=== PATIENT | male | born 1960 | race Caucasian/White ===

== ENCOUNTER 2017-06-07 12:37 | Inpatient (IN) | payer OTHER ==
[2017-06-07 14:30] VITALS: BMI 23.0
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
[2017-06-07] MEDS ORDERED: P-EPHED 60MG/TRIPROLIDI 2.5MG TABLET PO PRN (15:06)
[2017-06-07] MEDS ORDERED: MAG HYDROX/AL HYDROX/SIMETH 30 ML UNIT-DOSE CUP PO PRN (15:06)
[2017-06-07] MEDS ORDERED: guaiFENesin/D-METHORPHAN HB 10 ML UNIT-DOSE CUPS PO PRN (15:06)
[2017-06-07] MEDS ORDERED: MENTHOL/PHENOL 1 EACH UD MM PRN (15:06)
[2017-06-07] MEDS ORDERED: LOPERAMIDE HCL 2 MG CAPSULE PO PRN (15:06)
[2017-06-07] MEDS ORDERED: NICOTINE POLACRILEX 2 MG GUM BC PRN (15:06)
[2017-06-07] MEDS ORDERED: MAGNESIUM CITRATE 300 ML BOTTLE PO PRN (15:06)
[2017-06-07] MEDS ORDERED: MAGNESIUM HYDROX 2400MG/30ML ORAL SUSPENSION 30 ML CUP PO PRN (15:06)
[2017-06-07] MEDS ORDERED: METHADONE HCL 10 MG TABLET (FOR DETOX USE ONLY) PO ONE ×2 (16:45→23:00)
[2017-06-07] MEDS: BACITRACIN 0.9 GM PACKET TP SCH (17:30)
[2017-06-07] MEDS: NICOTINE 14 MG/24 HOURS TOPICAL PATCH TD SCH (17:30)
[2017-06-07] MEDS: diazePAM 5 MG TABLET PO PRN ×2 (17:31→22:16)
[2017-06-07] MEDS ORDERED: INSULIN (NOVOLOG) ASPART 100 UNITS/ML 10ML VIAL ONE ×2 (17:38→20:57)
[2017-06-07] MEDS: INSULIN SLIDING SCALE (NOVOLOG) 1 VIAL SQ SCH ×2 (17:40→22:20)
[2017-06-07] MEDS: ACETAMINOPHEN 325 MG TABLET (FP) PO PRN ×2 (17:41→22:17)
--- NOTE | 2017-06-07 19:11 | PN ---
S Progress Note Note: Patient with abnormal ekg : re afib. Patient reports hx of Afib on xarelto. Denies SOB, chest pain, edema, chest pain, vertigo or paresthesia. Vital Signs Temperature 98.4 F 06/07/17 18:39 Pulse Rate 61 06/07/17 18:39 Respiratory Rate 18 06/07/17 18:39 Blood Pressure 122/81 06/07/17 18:39 O2 Sat by Pulse Oximetry (%) Laboratory Last Values POC Glucometer 242 UNITS (80-120) 06/07/17 17:35 A/P: Patient AOX3, in no apparent distress. No adventitious breath sound Skin intact no edema Plan: Continue Xarelto Increase fluids Repeat EKG Continue to monitor
[2017-06-07] MEDS ORDERED: RIVAROXABAN 20 MG TABLET PO SCH (19:15)
[2017-06-07] MEDS: ROSUVASTATIN CA 10 MG TABLET (FP) PO SCH (22:15)
[2017-06-07] MEDS: CEPHALEXIN MONOHYDRATE 500 MG CAPSULE (UD) PO SCH (22:15)
[2017-06-07] MEDS: THIAMINE HCL 100 MG TABLET (FP) PO SCH (22:15)
[2017-06-07] MEDS: MELATONIN 5 MG TABLETS PO PRN (22:16)
[2017-06-07] MEDS: INSULIN DETEMIR 100 UNITS/ML MDV SQ SCH (22:19)
[2017-06-08] MEDS: diazePAM 5 MG TABLET PO PRN ×3 (05:46→22:59)
[2017-06-08] MEDS: INSULIN SLIDING SCALE (NOVOLOG) 1 VIAL SQ SCH ×4 (07:01→22:48)
--- NOTE | 2017-06-08 09:28 | EKG ---
Test Reason : Blood Pressure : / mmHG Vent. Rate : 090 BPM Atrial Rate : 141 BPM P-R Int : 000 ms QRS Dur : 086 ms QT Int : 366 ms P-R-T Axes : 000 074 068 degrees QTc Int : 447 ms ATRIAL FIBRILLATION ABNORMAL ECG WHEN COMPARED WITH ECG OF 07-JUN-2017 17:52, NO SIGNIFICANT CHANGE WAS FOUND Confirmed by JEN EVANS MD ([id number]) on 06/08/2017 9:28:14 AM Referred By: Confirmed By:JEN EVANS MD
--- NOTE | 2017-06-08 09:29 | EKG ---
Test Reason : Blood Pressure : / mmHG Vent. Rate : 109 BPM Atrial Rate : 136 BPM P-R Int : 000 ms QRS Dur : 082 ms QT Int : 304 ms P-R-T Axes : 000 074 059 degrees QTc Int : 409 ms ATRIAL FIBRILLATION WITH RAPID VENTRICULAR RESPONSE ABNORMAL ECG NO PREVIOUS ECGS AVAILABLE Confirmed by CRISTINA LAI, JEN ([id number]) on 06/08/2017 9:28:33 AM Referred By: Confirmed By:JEN EVANS MD
[2017-06-08] MEDS ORDERED: METHADONE HCL 10 MG TABLET (FOR DETOX USE ONLY) PO ONE (10:00)
[2017-06-08 10:01] LABS: CHLORIDE 106 mmol/L (98-107); POTASSIUM 3.9 mmol/L (3.5-5.1); SODIUM 140 mmol/L (136-145)
[2017-06-08 10:02] LABS: HEMATOCRIT 33.3 % (35.4-49); HEMOGLOBIN 11.2 GM/dL (11.7-16.9); MCH 32.1 pg (25.7-33.7); MCHC 33.7 g/dl (32.0-35.9); MEAN CELL VOLUME 95.5 fl (80-96); MEAN PLT VOLUME 9.3 fl (7.5-11.1); PLATELET COUNT 151 K/MM3 (134-434); RBC 3.49 M/mm3 (4.00-5.60); RDW 14.5 % (11.9-15.9); WHITE BLOOD COUNT 3.6 K/mm3 (4.0-10.0)
[2017-06-08 10:08] LABS: ALBUMIN 2.2 g/dl (3.4-5.0); ALK PHOS 85 U/L (45-117); ANION GAP 5 (8-16); BILIRUBIN,TOTAL 0.5 mg/dL (0.2-1.0); BLOOD UREA NITROGEN 20 mg/dL (7-18); CALCIUM 7.9 mg/dL (8.5-10.1); CO2 29 mmol/L (21-32); CREATININE 0.5 mg/dL (0.7-1.3); GLUCOSE,RANDOM 162 mg/dL (74-106); SGOT/AST 61 U/L (15-37); SGPT/ALT 53 U/L (12-78); TOT PROT 6.2 g/dl (6.4-8.2)
[2017-06-08] MEDS: BACITRACIN 0.9 GM PACKET TP SCH (10:45)
[2017-06-08] MEDS: ASPIRIN 81 MG CHEWABLE TABLETS PO SCH (10:45)
[2017-06-08] MEDS: CEPHALEXIN MONOHYDRATE 500 MG CAPSULE (UD) PO SCH ×2 (10:45→22:52)
[2017-06-08] MEDS: PRENATAL VITAMINS W/ FOLIC ACID TABLET (FP) PO SCH (10:45)
[2017-06-08] MEDS: NICOTINE 14 MG/24 HOURS TOPICAL PATCH TD SCH (10:47)
--- NOTE | 2017-06-08 13:20 | PN ---
BHS COWS - Scale Resting Pulse: 0= IN 80 or Below Sweatin= Chills/Flushing Restless Observation: 3= Extraneous Movement Pupil Size: 2= Moderately Dilated Bone or Joint Aches: 4=Acute Joint/Muscle Pain Runny Nose/ Eye Tearin= Nasal Congestion GI Upset > 30mins: 0= None Tremor Observation of Outstretched Hands: 1= Tremor Mammoth, Not Seen Yawning Observation: 1= 1-2x During Session Anxiety or Irritability: 2=Irritable/Anxious Goose Flesh Skin: 0=Smooth Skin COWS Score: 15 BHS Progress Note (SOAP) Subjective: ANXIETY,IRRITABILITY,RESTLESSNESS,LEFT FOOT PAIN/SWELLING/REDNESS...XRAY DONE TODAY. RESULT PENDING. Objective: 06/08/17 13:19 Vital Signs Temperature 98.6 F 06/08/17 11:15 Pulse Rate 76 06/08/17 11:15 Respiratory Rate 18 06/08/17 11:15 Blood Pressure 136/60 06/08/17 11:15 O2 Sat by Pulse Oximetry (%) Laboratory Last Values WBC 3.6 K/mm3 (4.0-10.0) L 06/08/17 08:00 RBC 3.49 M/mm3 (4.00-5.60) L 06/08/17 08:00 Hgb 11.2 GM/dL (11.7-16.9) L D 06/08/17 08:00 Hct 33.3 % (35.4-49) L D 06/08/17 08:00 MCV 95.5 fl (80-96) 06/08/17 08:00 MCH 32.1 pg (25.7-33.7) 06/08/17 08:00 MCHC 33.7 g/dl (32.0-35.9) 06/08/17 08:00 RDW 14.5 % (11.9-15.9) 06/08/17 08:00 Plt Count 151 K/MM3 (134-434) 06/08/17 08:00 MPV 9.3 fl (7.5-11.1) D 06/08/17 08:00 Sodium 140 mmol/L (136-145) 06/08/17 08:00 Potassium 3.9 mmol/L (3.5-5.1) 06/08/17 08:00 Chloride 106 mmol/L (98-107) 06/08/17 08:00 Carbon Dioxide 29 mmol/L (21-32) 06/08/17 08:00 Anion Gap 5 (8-16) L 06/08/17 08:00 BUN 20 mg/dL (7-18) H D 06/08/17 08:00 Creatinine 0.5 mg/dL (0.7-1.3) L 06/08/17 08:00 Creat Clearance w eGFR > 60 (>60) 06/08/17 08:00 POC Glucometer 223 UNITS (80-120) 06/07/17 20:37 Random Glucose 162 mg/dL (74-106) H D 06/08/17 08:00 Calcium 7.9 mg/dL (8.5-10.1) L 06/08/17 08:00 Total Bilirubin 0.5 mg/dL (0.2-1.0) D 06/08/17 08:00 AST 61 U/L (15-37) H D 06/08/17 08:00 ALT 53 U/L (12-78) D 06/08/17 08:00 Alkaline Phosphatase 85 U/L (45-117) D 06/08/17 08:00 Total Protein 6.2 g/dl (6.4-8.2) L 06/08/17 08:00 Albumin 2.2 g/dl (3.4-5.0) L 06/08/17 08:00 RPR Titer Nonreactive (NONREACTIVE) 06/08/17 08:00 Assessment: 06/08/17 13:20 WITHDRAWAL SX Plan: CONTINUE DETOX
[2017-06-08] MEDS ORDERED: BACLOFEN 10 MG TABLET (FP) PO SCH (14:00)
[2017-06-08] MEDS: CYCLOBENZAPRINE HCL 10 MG TABLET (FP) PO SCH ×2 (14:02→22:52)
--- NOTE | 2017-06-08 16:37 | CONSULT ---
[facility] Psychiatric Consult - Data Date of interview: 06/08/17 Admission source: [facility] Identifying data: Readmission to [facility] Care for this 56 y/o [place] male seeking detox treatment on for heroin and cocaine dependence.Patient is single without dependents,domiciled,unemployed and supported on SSI benefits. Substance Abuse History: Confirmed by patient in this report.Details in current [facility] report : Smoking history: Current every day smoker. Have you smoked in the past 12 months: Yes. Aproximately how many cigarettes per day: 10. Cigars Per Day: 0. Hx Chewing Tobacco Use: No. Initiated information on smoking cessation : Yes. 'Breaking Loose' booklet given: 06/07/17. - Substance & Tx. History. Hx Alcohol Use: No. Hx Substance Use: Yes. Substance Use Type: Cocaine, Heroin. Hx Substance Use Treatment: Yes (2012) Medical History: Hypertension,atrial fibrillation,diabetes mellitus,dyslipidemia ,positive PPD and a distant history of orthosurgery for fracture of right patella (1982). Psychiatric History: Patient endorses a history of multiple psychiatric hospitalizations ([facility], [place]) since his first contact with a psychiatrist in 1992.Initially diagnosed with MDD.Later revised to Bipolar Disorder.Mr Gabriel reports that he used to be on abilify 20 mg/day.Last taken " more than 3 months ago." Known to Tomás.Currently assigned to [facility] mental health clinic in [facility] ( questionable adherence).Denies history of suicide attempts. Physical/Sexual Abuse/Trauma History: Patient denies. Additional Comment: THC-Marijuana, AMP-Amphetamines, MET-Methamphetamine, PCP- Phencyclidine, MDMA-Ecstasy, BAR-Barbiturates, BZO-Benzodiazepines, TCA- Tricyclic Antidepressant, OXY-Oxycodone.Noted. Mental Status Exam - Mental Status Exam Alert and Oriented to: Time, Place, Person Cognitive Function: Good Patient Appearance: Well Groomed Mood: Nervous, Withdrawn Affect: Mood Congruent Patient Behavior: Fatigued, Appropriate, Cooperative Speech Pattern: Clear Voice Loudness: Normal Thought Process: Intact, Goal Oriented Thought Disorder: Not Present Hallucinations: Denies Suicidal Ideation: Denies Homicidal Ideation: Denies Insight/Judgement: Poor Sleep: Poorly, Difficulty falling asleep Appetite: Good Muscle strength/Tone: Normal Gait/Station: Other (unsteady gait due to orthopedic issues ; has a cane at home ) Psychiatric Findings - Problem List ([place] 1, 2,3) (1) Cocaine dependence, uncomplicated Current Visit: Yes Status: Acute (2) Opioid dependence with withdrawal Current Visit: Yes Status: Acute (3) Cannabis abuse Current Visit: Yes Status: Acute (4) MDMA abuse Current Visit: Yes Status: Acute (5) PCP abuse Current Visit: Yes Status: Acute (6) Substance induced mood disorder Current Visit: Yes Status: Acute (7) Bipolar disorder Current Visit: Yes Status: Acute Comment: As per self-report.Non-adherent to medications. (8) Insomnia Current Visit: Yes Status: Acute - Initial Treatment Plan Initial Treatment Plan: Psychoeducation.Sleep hygiene discussed.Detoxification in progress.Ambien 5 mg po hs prn + abilify 5 mg po daily.Side effects/benefits of both drugs are discussed with the patient.Mr Rios is made aware of potential for sleep-walking.Consent (verbal) given.Observation.
[2017-06-08] MEDS ORDERED: INSULIN (NOVOLOG) ASPART 100 UNITS/ML 10ML VIAL ONE (17:57)
[2017-06-08] MEDS: RIVAROXABAN 20 MG TABLET PO SCH (18:31)
[2017-06-08] MEDS: ACETAMINOPHEN 325 MG TABLET (FP) PO PRN (20:30)
[2017-06-08] MEDS: ROSUVASTATIN CA 10 MG TABLET (FP) PO SCH (22:52)
[2017-06-08] MEDS: THIAMINE HCL 100 MG TABLET (FP) PO SCH (22:52)
[2017-06-08] MEDS: INSULIN DETEMIR 100 UNITS/ML MDV SQ SCH (22:58)
[2017-06-09] MEDS: diazePAM 5 MG TABLET PO PRN ×4 (05:38→22:40)
[2017-06-09] MEDS: CYCLOBENZAPRINE HCL 10 MG TABLET (FP) PO SCH ×3 (05:38→22:31)
[2017-06-09] MEDS ORDERED: INSULIN (NOVOLOG) ASPART 100 UNITS/ML 10ML VIAL ONE ×2 (07:42→17:18)
[2017-06-09] MEDS: INSULIN SLIDING SCALE (NOVOLOG) 1 VIAL SQ SCH ×3 (07:50→16:32)
[2017-06-09] MEDS ORDERED: METHADONE HCL 5 MG TABLET (FOR DETOX USE ONLY) PO ONE (10:00)
[2017-06-09] MEDS: PRENATAL VITAMINS W/ FOLIC ACID TABLET (FP) PO SCH (10:33)
[2017-06-09] MEDS: CEPHALEXIN MONOHYDRATE 500 MG CAPSULE (UD) PO SCH ×2 (10:33→22:31)
[2017-06-09] MEDS: ARIPiprazole 5 MG TABLET (FP) PO SCH (10:33)
[2017-06-09] MEDS: BACITRACIN 0.9 GM PACKET TP SCH (10:33)
[2017-06-09] MEDS: ASPIRIN 81 MG CHEWABLE TABLETS PO SCH (10:33)
[2017-06-09] MEDS: NICOTINE 14 MG/24 HOURS TOPICAL PATCH TD SCH (10:34)
--- NOTE | 2017-06-09 11:33 | PN ---
BHS COWS - Scale Resting Pulse: 1= [place] 81-100 Sweatin= Chills/Flushing Restless Observation: 3= Extraneous Movement Pupil Size: 2= Moderately Dilated Bone or Joint Aches: 4=Acute Joint/Muscle Pain Runny Nose/ Eye Tearin= Nasal Congestion GI Upset > 30mins: 0= None Tremor Observation of Outstretched Hands: 2= Slight Tremor Visible Yawning Observation: 1= 1-2x During Session Anxiety or Irritability: 2=Irritable/Anxious Goose Flesh Skin: 0=Smooth Skin COWS Score: 17 BHS Progress Note (SOAP) Subjective: ANXIETY,IRRITABILITY,MUSCLE ACHES,LEFT FOOT PAIN DUE TO CELLULITIS AND ABSCESS DUE TO IVDU. REFUSED FINGER STICK ACHS. Objective: 06/09/17 11:32 Vital Signs Temperature 98.4 F 06/09/17 09:13 Pulse Rate 85 06/09/17 09:13 Respiratory Rate 18 06/09/17 09:13 Blood Pressure 123/75 06/09/17 09:13 O2 Sat by Pulse Oximetry (%) Laboratory Last Values WBC 3.6 K/mm3 (4.0-10.0) L 06/08/17 08:00 RBC 3.49 M/mm3 (4.00-5.60) L 06/08/17 08:00 Hgb 11.2 GM/dL (11.7-16.9) L D 06/08/17 08:00 Hct 33.3 % (35.4-49) L D 06/08/17 08:00 MCV 95.5 fl (80-96) 06/08/17 08:00 MCH 32.1 pg (25.7-33.7) 06/08/17 08:00 MCHC 33.7 g/dl (32.0-35.9) 06/08/17 08:00 RDW 14.5 % (11.9-15.9) 06/08/17 08:00 Plt Count 151 K/MM3 (134-434) 06/08/17 08:00 MPV 9.3 fl (7.5-11.1) D 06/08/17 08:00 Sodium 140 mmol/L (136-145) 06/08/17 08:00 Potassium 3.9 mmol/L (3.5-5.1) 06/08/17 08:00 Chloride 106 mmol/L (98-107) 06/08/17 08:00 Carbon Dioxide 29 mmol/L (21-32) 06/08/17 08:00 Anion Gap 5 (8-16) L 06/08/17 08:00 BUN 20 mg/dL (7-18) H D 06/08/17 08:00 Creatinine 0.5 mg/dL (0.7-1.3) L 06/08/17 08:00 Creat Clearance w eGFR > 60 (>60) 06/08/17 08:00 POC Glucometer 187 UNITS (80-120) 06/09/17 05:37 Random Glucose 162 mg/dL (74-106) H D 06/08/17 08:00 Calcium 7.9 mg/dL (8.5-10.1) L 06/08/17 08:00 Total Bilirubin 0.5 mg/dL (0.2-1.0) D 06/08/17 08:00 AST 61 U/L (15-37) H D 06/08/17 08:00 ALT 53 U/L (12-78) D 06/08/17 08:00 Alkaline Phosphatase 85 U/L (45-117) D 06/08/17 08:00 Total Protein 6.2 g/dl (6.4-8.2) L 06/08/17 08:00 Albumin 2.2 g/dl (3.4-5.0) L 06/08/17 08:00 RPR Titer Nonreactive (NONREACTIVE) 06/08/17 08:00 CXR /HX PPD+: NO ACUTE PATHOLOGY Assessment: 06/09/17 11:33 WITHDRAWAL SX Plan: CONTINUE DETOX CHANGE BGM TO BIDAC
[2017-06-09] MEDS: RIVAROXABAN 20 MG TABLET PO SCH (17:32)
[2017-06-09] MEDS: ROSUVASTATIN CA 10 MG TABLET (FP) PO SCH (22:31)
[2017-06-09] MEDS: INSULIN DETEMIR 100 UNITS/ML MDV SQ SCH (22:31)
[2017-06-09] MEDS: THIAMINE HCL 100 MG TABLET (FP) PO SCH (22:31)
[2017-06-09] MEDS: MELATONIN 5 MG TABLETS PO PRN (22:32)
[2017-06-10] MEDS: CYCLOBENZAPRINE HCL 10 MG TABLET (FP) PO SCH ×3 (05:18→22:30)
[2017-06-10] MEDS: diazePAM 5 MG TABLET PO PRN ×2 (05:19→10:19)
[2017-06-10] MEDS: INSULIN SLIDING SCALE (NOVOLOG) 1 VIAL SQ SCH ×2 (07:24→17:25)
[2017-06-10] MEDS ORDERED: INSULIN (NOVOLOG) ASPART 100 UNITS/ML 10ML VIAL ONE ×2 (07:24→17:06)
[2017-06-10] MEDS ORDERED: METHADONE HCL 5 MG TABLET (FOR DETOX USE ONLY) PO ONE (10:00)
[2017-06-10] MEDS: BACITRACIN 0.9 GM PACKET TP SCH (10:17)
[2017-06-10] MEDS: CEPHALEXIN MONOHYDRATE 500 MG CAPSULE (UD) PO SCH ×2 (10:17→22:30)
[2017-06-10] MEDS: PRENATAL VITAMINS W/ FOLIC ACID TABLET (FP) PO SCH (10:17)
[2017-06-10] MEDS: ASPIRIN 81 MG CHEWABLE TABLETS PO SCH (10:17)
[2017-06-10] MEDS: NICOTINE 14 MG/24 HOURS TOPICAL PATCH TD SCH (10:18)
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
[2017-06-10] MEDS ORDERED: RANITIDINE HCL 150 MG TABLET (FP) PO ONE (11:50)
[2017-06-10] MEDS: ARIPiprazole 5 MG TABLET (FP) PO SCH (12:13)
[2017-06-10] MEDS: RIVAROXABAN 20 MG TABLET PO SCH (17:20)
[2017-06-10] MEDS: ROSUVASTATIN CA 10 MG TABLET (FP) PO SCH (22:30)
[2017-06-10] MEDS: RANITIDINE HCL 150 MG TABLET (FP) PO SCH (22:30)
[2017-06-10] MEDS: THIAMINE HCL 100 MG TABLET (FP) PO SCH (22:30)
[2017-06-10] MEDS: INSULIN DETEMIR 100 UNITS/ML MDV SQ SCH (22:32)
[2017-06-10] MEDS ORDERED: hydrOXYzine PAMOATE 50 MG CAPSULE (FP) PO PRN (22:39)
[2017-06-11] MEDS: CYCLOBENZAPRINE HCL 10 MG TABLET (FP) PO SCH ×3 (05:14→22:23)
[2017-06-11] MEDS: INSULIN SLIDING SCALE (NOVOLOG) 1 VIAL SQ SCH ×2 (07:15→17:11)
[2017-06-11] MEDS ORDERED: INSULIN (NOVOLOG) ASPART 100 UNITS/ML 10ML VIAL ONE ×2 (07:19→17:05)
[2017-06-11 10:00] LABS: URINE APPEARANCE CLEAR; URINE BILIRUBIN NEGATIVE (<2.0 mg/dL); URINE BLOOD NEGATIVE (NEGATIVE); URINE COLOR LTYELLOW; URINE GLUCOSE (UA) 3+ (NEGATIVE); URINE KETONE NEGATIVE (NEGATIVE); URINE LEUK ESTERASE NEGATIVE (NEGATIVE); URINE NITRITE NEGATIVE (NEGATIVE); URINE PROTEIN NEGATIVE (NEGATIVE)
[2017-06-11] MEDS ORDERED: METHADONE HCL 10 MG TABLET (FOR DETOX USE ONLY) PO ONE (10:00)
[2017-06-11] MEDS: PRENATAL VITAMINS W/ FOLIC ACID TABLET (FP) PO SCH (10:25)
[2017-06-11] MEDS: CEPHALEXIN MONOHYDRATE 500 MG CAPSULE (UD) PO SCH ×2 (10:25→22:23)
[2017-06-11] MEDS: ASPIRIN 81 MG CHEWABLE TABLETS PO SCH (10:25)
[2017-06-11] MEDS: RANITIDINE HCL 150 MG TABLET (FP) PO SCH ×2 (10:26→22:23)
[2017-06-11] MEDS: NICOTINE 14 MG/24 HOURS TOPICAL PATCH TD SCH (10:26)
[2017-06-11] MEDS: BACITRACIN 0.9 GM PACKET TP SCH (10:26)
[2017-06-11] MEDS: ARIPiprazole 5 MG TABLET (FP) PO SCH (10:53)
--- NOTE | 2017-06-11 15:46 | PN ---
BHS Progress Note (SOAP) Subjective: Anxious, Irritable, Interrupted Sleep. Objective: PATIENT A & O X 3, OBSERVED AMBULATING ON UNIT WITH ASSISTANCE OF A CANE. NO ACUTE DISTRESS. 06/11/17 15:44 Vital Signs Temperature 96.9 F L 06/11/17 13:58 Pulse Rate 96 H 06/11/17 13:58 Respiratory Rate 20 06/11/17 13:58 Blood Pressure 131/78 06/11/17 13:58 O2 Sat by Pulse Oximetry (%) Laboratory Tests 06/07/17 06/07/17 06/07/17 15:27 17:35 20:37 WBC RBC Hgb Hct MCV MCH MCHC RDW Plt Count MPV Sodium Potassium Chloride Carbon Dioxide Anion Gap BUN Creatinine Creat Clearance w eGFR POC Glucometer 295 242 223 Random Glucose Calcium Total Bilirubin AST ALT Alkaline Phosphatase Total Protein Albumin Urine Color Urine Appearance Urine pH Ur Specific [place] Urine Protein Urine Glucose (UA) Urine Ketones Urine Blood Urine Nitrite Urine Bilirubin Urine Urobilinogen Ur Leukocyte Esterase RPR Titer 06/08/17 06/08/17 06/08/17 08:00 08:00 08:00 WBC 3.6 L RBC 3.49 L Hgb 11.2 L D Hct 33.3 L D MCV 95.5 MCH 32.1 MCHC 33.7 RDW 14.5 Plt Count 151 MPV 9.3 D Sodium 140 Potassium 3.9 Chloride 106 Carbon Dioxide 29 Anion Gap 5 L BUN 20 H D Creatinine 0.5 L Creat Clearance w eGFR > 60 POC Glucometer Random Glucose 162 H D Calcium 7.9 L Total Bilirubin 0.5 D AST 61 H D ALT 53 D Alkaline Phosphatase 85 D Total Protein 6.2 L Albumin 2.2 L Urine Color Urine Appearance Urine pH Ur Specific [place] Urine Protein Urine Glucose (UA) Urine Ketones Urine Blood Urine Nitrite Urine Bilirubin Urine Urobilinogen Ur Leukocyte Esterase RPR Titer Nonreactive 06/08/17 06/08/17 06/09/17 16:09 21:27 05:37 WBC RBC Hgb Hct MCV MCH MCHC RDW Plt Count MPV Sodium Potassium Chloride Carbon Dioxide Anion Gap BUN Creatinine Creat Clearance w eGFR POC Glucometer 294 210 187 Random Glucose Calcium Total Bilirubin AST ALT Alkaline Phosphatase Total Protein Albumin Urine Color Urine Appearance Urine pH Ur Specific [place] Urine Protein Urine Glucose (UA) Urine Ketones Urine Blood Urine Nitrite Urine Bilirubin Urine Urobilinogen Ur Leukocyte Esterase RPR Titer 06/09/17 06/09/17 06/10/17 16:25 21:10 05:20 WBC RBC Hgb Hct MCV MCH MCHC RDW Plt Count MPV Sodium Potassium Chloride Carbon Dioxide Anion Gap BUN Creatinine Creat Clearance w eGFR POC Glucometer 250 228 245 Random Glucose Calcium Total Bilirubin AST ALT Alkaline Phosphatase Total Protein Albumin Urine Color Urine Appearance Urine pH Ur Specific [place] Urine Protein Urine Glucose (UA) Urine Ketones Urine Blood Urine Nitrite Urine Bilirubin Urine Urobilinogen Ur Leukocyte Esterase RPR Titer 06/10/17 06/10/17 06/11/17 16:26 21:32 05:13 WBC RBC Hgb Hct MCV MCH MCHC RDW Plt Count MPV Sodium Potassium Chloride Carbon Dioxide Anion Gap BUN Creatinine Creat Clearance w eGFR POC Glucometer 333 248 305 Random Glucose Calcium Total Bilirubin AST ALT Alkaline Phosphatase Total Protein Albumin Urine Color Urine Appearance Urine pH Ur Specific [place] Urine Protein Urine Glucose (UA) Urine Ketones Urine Blood Urine Nitrite Urine Bilirubin Urine Urobilinogen Ur Leukocyte Esterase RPR Titer 06/11/17 08:00 WBC RBC Hgb Hct MCV MCH MCHC RDW Plt Count MPV Sodium Potassium Chloride Carbon Dioxide Anion Gap BUN Creatinine Creat Clearance w eGFR POC Glucometer Random Glucose Calcium Total Bilirubin AST ALT Alkaline Phosphatase Total Protein Albumin Urine Color Ltyellow Urine Appearance Clear Urine pH 5.0 Ur Specific [place] 1.020 Urine Protein Negative Urine Glucose (UA) 3+ H Urine Ketones Negative Urine Blood Negative Urine Nitrite Negative Urine Bilirubin Negative Urine Urobilinogen 2.0 Ur Leukocyte Esterase Negative RPR Titer LABS NOTED. 06/11/17 15:44 Assessment: 06/11/17 15:44 WITHDRAWAL SYMPTOMS. Plan: CONTINUE DETOX. D/C SCHEDULED FOR TOMORROW AM.
[2017-06-11] MEDS: RIVAROXABAN 20 MG TABLET PO SCH (18:01)
[2017-06-11] MEDS: THIAMINE HCL 100 MG TABLET (FP) PO SCH (22:23)
[2017-06-11] MEDS: ROSUVASTATIN CA 10 MG TABLET (FP) PO SCH (22:23)
[2017-06-11] MEDS: INSULIN DETEMIR 100 UNITS/ML MDV SQ SCH (22:24)
[2017-06-12] MEDS: CYCLOBENZAPRINE HCL 10 MG TABLET (FP) PO SCH (05:24)
[2017-06-12] MEDS ORDERED: METHADONE HCL 5 MG TABLET (FOR DETOX USE ONLY) PO ONE (06:00)
[2017-06-12] MEDS: INSULIN SLIDING SCALE (NOVOLOG) 1 VIAL SQ SCH (07:31)
[2017-06-12 09:17] VITALS: BP 114/71; PULSE 72; TEMP 98.1
[2017-06-12] MEDS: ARIPiprazole 5 MG TABLET (FP) PO SCH (09:51)
[2017-06-12] MEDS: CEPHALEXIN MONOHYDRATE 500 MG CAPSULE (UD) PO SCH (09:51)
[2017-06-12] MEDS: BACITRACIN 0.9 GM PACKET TP SCH (09:51)
[2017-06-12] MEDS: ASPIRIN 81 MG CHEWABLE TABLETS PO SCH (09:51)
[2017-06-12] MEDS: RANITIDINE HCL 150 MG TABLET (FP) PO SCH (09:51)
[2017-06-12] MEDS: PRENATAL VITAMINS W/ FOLIC ACID TABLET (FP) PO SCH (09:51)
[2017-06-12] MEDS: NICOTINE 14 MG/24 HOURS TOPICAL PATCH TD SCH (09:51)
--- NOTE | 2017-06-12 11:50 | DS ---
[facility] Detox Discharge Summary Admission Date: 06/07/17 Discharge Date: 06/12/17 - History Present History: Cocaine Dependence, Opioid Dependence Pertinent Past History: A Fib HLD Hepatitis C DMT1 GERD HTN - Physical Exam Results Vital Signs: Vital Signs Temperature 98.1 F 06/12/17 09:16 Pulse Rate 72 06/12/17 09:16 Respiratory Rate 18 06/12/17 09:16 Blood Pressure 114/71 06/12/17 09:16 O2 Sat by Pulse Oximetry (%) Pertinent Admission Physical Exam Findings: Withdrawal symptoms Laboratory Tests 06/07/17 06/07/17 06/07/17 15:27 17:35 20:37 WBC RBC Hgb Hct MCV MCH MCHC RDW Plt Count MPV Sodium Potassium Chloride Carbon Dioxide Anion Gap BUN Creatinine Creat Clearance w eGFR POC Glucometer 295 242 223 Random Glucose Calcium Total Bilirubin AST ALT Alkaline Phosphatase Total Protein Albumin Urine Color Urine Appearance Urine pH Ur Specific [place] Urine Protein Urine Glucose (UA) Urine Ketones Urine Blood Urine Nitrite Urine Bilirubin Urine Urobilinogen Ur Leukocyte Esterase RPR Titer 06/08/17 06/08/17 06/08/17 08:00 08:00 08:00 WBC 3.6 L RBC 3.49 L Hgb 11.2 L D Hct 33.3 L D MCV 95.5 MCH 32.1 MCHC 33.7 RDW 14.5 Plt Count 151 MPV 9.3 D Sodium 140 Potassium 3.9 Chloride 106 Carbon Dioxide 29 Anion Gap 5 L BUN 20 H D Creatinine 0.5 L Creat Clearance w eGFR > 60 POC Glucometer Random Glucose 162 H D Calcium 7.9 L Total Bilirubin 0.5 D AST 61 H D ALT 53 D Alkaline Phosphatase 85 D Total Protein 6.2 L Albumin 2.2 L Urine Color Urine Appearance Urine pH Ur Specific [place] Urine Protein Urine Glucose (UA) Urine Ketones Urine Blood Urine Nitrite Urine Bilirubin Urine Urobilinogen Ur Leukocyte Esterase RPR Titer Nonreactive 06/08/17 06/08/17 06/09/17 16:09 21:27 05:37 WBC RBC Hgb Hct MCV MCH MCHC RDW Plt Count MPV Sodium Potassium Chloride Carbon Dioxide Anion Gap BUN Creatinine Creat Clearance w eGFR POC Glucometer 294 210 187 Random Glucose Calcium Total Bilirubin AST ALT Alkaline Phosphatase Total Protein Albumin Urine Color Urine Appearance Urine pH Ur Specific [place] Urine Protein Urine Glucose (UA) Urine Ketones Urine Blood Urine Nitrite Urine Bilirubin Urine Urobilinogen Ur Leukocyte Esterase RPR Titer 06/09/17 06/09/17 06/10/17 16:25 21:10 05:20 WBC RBC Hgb Hct MCV MCH MCHC RDW Plt Count MPV Sodium Potassium Chloride Carbon Dioxide Anion Gap BUN Creatinine Creat Clearance w eGFR POC Glucometer 250 228 245 Random Glucose Calcium Total Bilirubin AST ALT Alkaline Phosphatase Total Protein Albumin Urine Color Urine Appearance Urine pH Ur Specific [place] Urine Protein Urine Glucose (UA) Urine Ketones Urine Blood Urine Nitrite Urine Bilirubin Urine Urobilinogen Ur Leukocyte Esterase RPR Titer 06/10/17 06/10/17 06/11/17 16:26 21:32 05:13 WBC RBC Hgb Hct MCV MCH MCHC RDW Plt Count MPV Sodium Potassium Chloride Carbon Dioxide Anion Gap BUN Creatinine Creat Clearance w eGFR POC Glucometer 333 248 305 Random Glucose Calcium Total Bilirubin AST ALT Alkaline Phosphatase Total Protein Albumin Urine Color Urine Appearance Urine pH Ur Specific [place] Urine Protein Urine Glucose (UA) Urine Ketones Urine Blood Urine Nitrite Urine Bilirubin Urine Urobilinogen Ur Leukocyte Esterase RPR Titer 06/11/17 06/11/17 06/12/17 08:00 16:31 05:23 WBC RBC Hgb Hct MCV MCH MCHC RDW Plt Count MPV Sodium Potassium Chloride Carbon Dioxide Anion Gap BUN Creatinine Creat Clearance w eGFR POC Glucometer 301 200 Random Glucose Calcium Total Bilirubin AST ALT Alkaline Phosphatase Total Protein Albumin Urine Color Ltyellow Urine Appearance Clear Urine pH 5.0 Ur Specific [place] 1.020 Urine Protein Negative Urine Glucose (UA) 3+ H Urine Ketones Negative Urine Blood Negative Urine Nitrite Negative Urine Bilirubin Negative Urine Urobilinogen 2.0 Ur Leukocyte Esterase Negative RPR Titer Labs reviewed - Treatment Hospital Course: Detox Protocol Followed, Detoxed Safely, Responded well, Discharged Condition Good - Medication Discharge Medications: Ambulatory Orders Rosuvastatin Calcium [Crestor] 10 mg PO HS #30 tablet 12/25/12 Aripiprazole [Abilify] 5 mg PO HS #30 tablet 06/10/17 Aspirin 81 mg PO DAILY #30 tab.chew 06/11/17 Cephalexin [Keflex] 500 mg PO BID 5 Days #10 capsule 06/11/17 Insulin Aspart [Novolog] 12 unit SQ TIDCM #1 cartridge 06/11/17 Insulin Glargine,Hum.rec.anlog [Lantus (10mL VIAL) -] 30 units SQ HS #1 vial Rivaroxaban [Xarelto -] 20 mg PO DAILY 30 Days #30 tablet 06/11/17 - Diagnosis (1) HTN (hypertension) Status: Chronic (2) Nicotine dependence Status: Chronic (3) Cocaine dependence Status: Chronic (4) Bipolar disorder Status: Chronic (5) Cellulitis of both feet Status: Acute (6) Opioid dependence with withdrawal Status: Acute (7) DM Diabetes mellitus type 1 Status: Chronic (8) GERD (gastroesophageal reflux disease) Status: Chronic Qualifiers: Esophagitis presence: esophagitis presence not specified Qualified Code(s) : K21.9 - Gastro-esophageal reflux disease without esophagitis (9) Hypercholesterolemia Status: Chronic (10) atrial fibrillation chronic Status: Chronic (11) Hepatitis C carrier Status: Chronic - AMA Did Patient Leave Against Medical Advice: No (F/U with your PCP within 1 week )
== END 2017-06-12 10:15 | disposition home or self-care (01) | DRG 773 ==
LOC: YASAS 12:37 → Y3N 15:58
PROVIDERS: ADMIT Internal Medicine; ATTEND Internal Medicine
PROC: HZ2ZZZZ Detoxification Services for Substance Abuse Treatment (ICD-10-PCS; principal; 2017-06-07)
DX: F11.23 Opioid dependence with withdrawal (principal); F14.20 Cocaine dependence, uncomplicated; F31.9 Bipolar disorder, unspecified; F15.10 Other stimulant abuse, uncomplicated; F16.10 Hallucinogen abuse, uncomplicated; F19.24 Other psychoactive substance dependence with psychoactive substance-induced mood disorder; F17.210 Nicotine dependence, cigarettes, uncomplicated; I10 Essential (primary) hypertension; I48.2 Chronic atrial fibrillation; Z79.01 Long term (current) use of anticoagulants; E78.00 Pure hypercholesterolemia, unspecified; K21.9 Gastro-esophageal reflux disease without esophagitis; E10.9 Type 1 diabetes mellitus without complications; Z79.4 Long term (current) use of insulin; B18.2 Chronic viral hepatitis C; L03.115 Cellulitis of right lower limb
CPT/HCPCS: 36415; 71046-TC-FY; 80053; 81003; 82962; 85027; 86593; 93005; 93010

== ENCOUNTER 2020-10-07 11:13 | Inpatient (IN) | payer OTHER ==
[2020-10-07 13:35] VITALS: BMI 25.3
[2020-10-07] MEDS ORDERED: INSULIN (NOVOLOG) ASPART 100 UNITS/ML 10ML VIAL ONE (14:24)
[2020-10-07] MEDS ORDERED: BISMUTH SUBSALICYLATE 262 MG/15 ML BTL PO PRN (14:27)
[2020-10-07] MEDS ORDERED: IBUPROFEN 400 MG TABLET (FP) PO PRN (14:27)
[2020-10-07] MEDS ORDERED: MAGNESIUM CITRATE 300 ML BOTTLE PO PRN (14:27)
[2020-10-07] MEDS ORDERED: LORazepam 1 MG TABLET PO PRN (14:27)
[2020-10-07] MEDS ORDERED: MENTHOL/PHENOL 1 EACH UD MM PRN (14:27)
[2020-10-07] MEDS ORDERED: MAG HYDROX/AL HYDROX/SIMETH 30 ML UNIT-DOSE CUP PO PRN (14:27)
[2020-10-07] MEDS ORDERED: cloNIDine HCL 0.1 MG TABLET PO PRN (14:27)
[2020-10-07] MEDS ORDERED: LORazepam 2 MG TABLET PO ONE (14:27)
[2020-10-07] MEDS ORDERED: NICOTINE 10 MG CARTRIDGE (INHALER) IH PRN (14:27)
[2020-10-07] MEDS ORDERED: MAGNESIUM HYDROX 2400MG/30ML ORAL SUSPENSION 30 ML CUP PO PRN (14:27)
[2020-10-07] MEDS ORDERED: methaDONE HCL 10 MG TABLET (FOR DETOX USE ONLY) PO ONE (14:27)
[2020-10-07] MEDS ORDERED: clonazePAM 0.5 MG ODT TABLETS SL PRN (14:27)
[2020-10-07] MEDS ORDERED: ACETAMINOPHEN 325 MG TABLET (FP) PO PRN ×2 (14:27)
[2020-10-07] MEDS ORDERED: METHOCARBAMOL 500 MG TABLET PO PRN (14:27)
[2020-10-07] MEDS ORDERED: ONDANSETRON *ODT* 4 MG TABLET SL PRN (14:27)
[2020-10-07] MEDS ORDERED: INSULIN (NOVOLOG) ASPART 100 UNITS/ML 10ML VIAL SQ ONE (14:33)
[2020-10-07] MEDS: NICOTINE 14 MG/24 HOURS TOPICAL PATCH TD SCH (15:58)
[2020-10-07] MEDS: LORazepam 2 MG TABLET PO SCH ×2 (17:23→23:07)
[2020-10-07] MEDS: hydrOXYzine PAMOATE 25 MG CAPSULE (FP) PO SCH ×2 (17:24→23:07)
[2020-10-07] MEDS: INSULIN SLIDING SCALE (NOVOLOG) 1 VIAL SQ SCH ×2 (17:24→23:05)
[2020-10-07] MEDS ORDERED: INSULIN (NOVOLOG) ASPART 100 UNITS/ML 10ML VIAL SQ SCH (17:30)
[2020-10-07 17:36] LABS: CALCIUM 8.3 mg/dL (8.5-10.1); HEMATOCRIT 37.6 % (35.4-49); HEMOGLOBIN 12.6 GM/dL (11.7-16.9); MCH 34.8 pg (25.7-33.7); MCHC 33.4 g/dl (32.0-35.9); MEAN CELL VOLUME 104.3 fl (80-96); MEAN PLT VOLUME 11.4 fl (7.5-11.1); PLATELET COUNT 80 10^3/uL (134-434); RBC 3.61 M/mm3 (4.00-5.60); RDW 14.4 % (11.9-15.9); WHITE BLOOD COUNT 5.1 K/mm3 (4.0-10.0)
[2020-10-07 17:37] LABS: ALBUMIN 2.8 g/dl (3.4-5.0); BLOOD UREA NITROGEN 13.7 mg/dL (7-18)
[2020-10-07 17:40] LABS: CREATININE 0.9 mg/dL (0.55-1.3)
[2020-10-07 17:42] LABS: BILIRUBIN,TOTAL 0.9 mg/dL (0.2-1); TOT PROT 7.3 g/dl (6.4-8.2)
[2020-10-07 18:35] LABS: HIV INTERPRETATION NEGATIVE (NEGATIVE)
[2020-10-07] MEDS: INSULIN (LEVEMIR) 100 UNITS/ML UNITS SQ SCH (23:06)
[2020-10-07] MEDS: THIAMINE HCL 100 MG TABLET (FP) PO SCH (23:07)
[2020-10-07] MEDS: MELATONIN 5 MG TABLETS PO SCH (23:07)
[2020-10-08] MEDS: hydrOXYzine PAMOATE 25 MG CAPSULE (FP) PO SCH ×5 (07:22→22:25)
[2020-10-08] MEDS: INSULIN SLIDING SCALE (NOVOLOG) 1 VIAL SQ SCH ×4 (07:22→22:26)
[2020-10-08] MEDS: LORazepam 2 MG TABLET PO SCH ×4 (07:22→22:25)
[2020-10-08] MEDS ORDERED: methaDONE HCL 10 MG TABLET (FOR DETOX USE ONLY) ONE (09:39)
[2020-10-08] MEDS: PRENATAL VITAMINS W/ FOLIC ACID TABLET (FP) PO SCH (10:20)
[2020-10-08] MEDS: PANTOPRAZOLE 40 MG TABLET PO SCH (10:21)
[2020-10-08] MEDS: ASPIRIN 81 MG CHEWABLE TABLETS PO SCH (10:21)
[2020-10-08] MEDS: NICOTINE 14 MG/24 HOURS TOPICAL PATCH TD SCH (10:23)
[2020-10-08] MEDS: RIVAROXABAN 20 MG TABLET PO SCH (18:00)
[2020-10-08] MEDS: ATORVASTATIN CA 20 MG TABLET (FP) PO SCH (22:25)
[2020-10-08] MEDS: MELATONIN 5 MG TABLETS PO SCH (22:25)
[2020-10-08] MEDS: THIAMINE HCL 100 MG TABLET (FP) PO SCH (22:25)
[2020-10-08] MEDS: INSULIN (LEVEMIR) 100 UNITS/ML UNITS SQ SCH (22:31)
[2020-10-09] MEDS: hydrOXYzine PAMOATE 25 MG CAPSULE (FP) PO SCH ×5 (06:57→22:34)
[2020-10-09] MEDS: LORazepam 1 MG TABLET PO SCH ×4 (06:57→22:34)
[2020-10-09] MEDS: INSULIN SLIDING SCALE (NOVOLOG) 1 VIAL SQ SCH ×4 (07:00→22:39)
[2020-10-09] MEDS ORDERED: methaDONE HCL 10 MG TABLET (FOR DETOX USE ONLY) PO ONE (10:00)
[2020-10-09] MEDS: PRENATAL VITAMINS W/ FOLIC ACID TABLET (FP) PO SCH (11:00)
[2020-10-09] MEDS: ASPIRIN 81 MG CHEWABLE TABLETS PO SCH (11:00)
[2020-10-09] MEDS: PANTOPRAZOLE 40 MG TABLET PO SCH (11:00)
[2020-10-09] MEDS: NICOTINE 14 MG/24 HOURS TOPICAL PATCH TD SCH (11:01)
[2020-10-09] MEDS: RIVAROXABAN 20 MG TABLET PO SCH (18:00)
[2020-10-09 21:46] VITALS: TEMP 96.9
[2020-10-09] MEDS: ATORVASTATIN CA 20 MG TABLET (FP) PO SCH (22:34)
[2020-10-09] MEDS: MELATONIN 5 MG TABLETS PO SCH (22:34)
[2020-10-09] MEDS: THIAMINE HCL 100 MG TABLET (FP) PO SCH (22:34)
[2020-10-09] MEDS: INSULIN (LEVEMIR) 100 UNITS/ML UNITS SQ SCH (22:38)
[2020-10-10] MEDS ORDERED: LORazepam 0.5 MG TABLET PO PRN
[2020-10-10] MEDS: hydrOXYzine PAMOATE 25 MG CAPSULE (FP) PO SCH ×2 (05:24→10:21)
[2020-10-10] MEDS: LORazepam 0.5 MG TABLET PO SCH ×2 (05:25→10:19)
[2020-10-10] MEDS: INSULIN SLIDING SCALE (NOVOLOG) 1 VIAL SQ SCH ×2 (06:30→12:10)
[2020-10-10 09:20] VITALS: BP 117/68; PULSE 74
[2020-10-10] MEDS ORDERED: methaDONE HCL 10 MG TABLET (FOR DETOX USE ONLY) ONE (09:40)
[2020-10-10] MEDS: PRENATAL VITAMINS W/ FOLIC ACID TABLET (FP) PO SCH (10:19)
[2020-10-10] MEDS: ASPIRIN 81 MG CHEWABLE TABLETS PO SCH (10:19)
[2020-10-10] MEDS: NICOTINE 14 MG/24 HOURS TOPICAL PATCH TD SCH (10:20)
[2020-10-10] MEDS: PANTOPRAZOLE 40 MG TABLET PO SCH (10:21)
[2020-10-11] MEDS ORDERED: LORazepam 0.5 MG TABLET PO ONE (05:00)
[2020-10-11] MEDS ORDERED: methaDONE HCL 10 MG TABLET (FOR DETOX USE ONLY) PO ONE (10:00)
== END 2020-10-10 12:35 | disposition left against medical advice (07) | DRG 770 ==
LOC: YASAS 11:13 → Y3N 14:14
PROVIDERS: ADMIT Allergy & Immunology; ATTEND Allergy & Immunology
PROC: HZ2ZZZZ Detoxification Services for Substance Abuse Treatment (ICD-10-PCS; principal; 2020-10-08)
DX: F11.23 Opioid dependence with withdrawal (principal); F10.230 Alcohol dependence with withdrawal, uncomplicated; F17.210 Nicotine dependence, cigarettes, uncomplicated; F19.24 Other psychoactive substance dependence with psychoactive substance-induced mood disorder; I10 Essential (primary) hypertension; I48.91 Unspecified atrial fibrillation; K21.9 Gastro-esophageal reflux disease without esophagitis; E78.5 Hyperlipidemia, unspecified; E11.9 Type 2 diabetes mellitus without complications; Z79.4 Long term (current) use of insulin; Z79.01 Long term (current) use of anticoagulants; Z88.8 Allergy status to other drugs, medicaments and biological substances
CPT/HCPCS: 36415; 80053; 82962; 83036; 85027; 86780; 87389; C9803; U0003; U0005